=== PATIENT | male | born 1960 | race Caucasian/White ===

== ENCOUNTER 2016-10-21 16:36 | Emergency (ER) | payer OTHER ==
[2016-10-21] MEDS ORDERED: FLUORESCEIN OPHTHALMIC 1 MG STRIP ONE (16:46)
[2016-10-21] MEDS ORDERED: PROPARACAINE OPHTH 0.5%, 15ML ONE (16:46)
[2016-10-21 16:56] VITALS: BP 148/87
[2016-10-21] MEDS ORDERED: predniSOLONE OPHTH 0.125%, 5ML RIGHTEYE STA (18:13)
[2016-10-21] MEDS ORDERED: OFLOXACIN OPHTH 0.3%, 5ML RIGHTEYE SCH (18:30)
[2016-10-21] MEDS ORDERED: PLEASE ENTER HEIGHT AND WEIGHT MC SCH (19:30)
== END 2016-10-21 19:04 | disposition home or self-care (01) ==
LOC: ED 16:54
DX: H57.11 Ocular pain, right eye (principal)
CPT/HCPCS: 99283